=== PATIENT | female | born 1965 | race Caucasian/White ===

== ENCOUNTER → 2016-11-12 | Outpatient (CLI) | payer OTHER | LOC: BMCIMAGING 10:04 | PROVIDERS: ATTEND Internal Medicine | DX: R06.02 Shortness of breath (principal); Z85.850 Personal history of malignant neoplasm of thyroid ==

== ENCOUNTER 2017-01-23 10:55 | Day surgery (SDC) | payer OTHER ==
[2017-01-23] MEDS ORDERED: ASPIRIN EC 325 MG TAB PO ONE ×2 (10:57→11:20)
[2017-01-23] MEDS ORDERED: FAMOTIDINE 20 MG TAB PO ONE (10:57)
[2017-01-23] MEDS ORDERED: DIAZEPAM 5 MG TAB PO ONE (10:57)
[2017-01-23] MEDS ORDERED: diphenhydrAMINE 25 MG CAP PO ONE ×2 (10:57→11:20)
[2017-01-23] MEDS ORDERED: NS 1,000 ML IV ONE (10:57)
--- NOTE | 2017-01-23 11:18 | CPEKG ---
Heart Rate: 60 RR Interval: 1000 P-R Interval: 136 QRSD Interval: 94 QT Interval: 448 QTC Interval: 448 P [place]: 18 QRS [place]: 29 T Wave [place]: 48 EKG Severity - BORDERLINE ECG - EKG Impression: SINUS RHYTHM EKG Impression: non-specific ST depression anterior-lateral leads. Electronically Signed By: Travon Wellington 23-Jan-2017 12:13:28
[2017-01-23] MEDS ORDERED: FAMOTIDINE 20 MG TAB ONE (11:20)
[2017-01-23] MEDS ORDERED: DIAZEPAM 5 MG TAB ONE (11:21)
[2017-01-23 11:33] LABS: % IMMATURE GRANULYOCYTES 0.3 % (0.0-1.1); ABSOLUTE IMMATURE GRANULOCYTES 0.02 10^3/uL (0.00-0.10); ADD DIFF? NO; ADD MORPH? NO; ADD SCAN? NO; ATYPICAL LYMPHOCYTE FLAG 20 (0-99); FRAGMENT RBC FLAG 0 (0-99); HEMATOCRIT 41.6 % (38.0-47.0); HEMOGLOBIN 14.1 g/dL (12.6-16.3); LEFT SHIFT FLG 0 (0-99); LIPEMIA HEMOLYSIS FLAG 90 (0-99); MEAN CELL HEMOGLOBIN 30.6 pg (27.9-34.1); MEAN CELL HEMOGLOBIN CONCENTR. 33.9 g/dL (32.4-36.7); MEAN CELL VOLUME 90.2 fL (81.5-99.8); MEAN PLATELET VOLUME 9.6 fL (8.7-11.7); PLATELET CLUMPS FLAG 0 (0-99); PLATELET COUNT 320 10^3/uL (150-400); RED BLOOD CELL COUNT 4.61 10^6/uL (4.18-5.33); RED CELL DISTRIBUTION WIDTH 13.1 % (11.5-15.2)
[2017-01-23 11:46] LABS: ANION GAP 10 mEq/L (8-16); CALCIUM 9.5 mg/dL (8.5-10.4); CARBON DIOXIDE 26 mEq/l (22-31); CHLORIDE 107 mEq/L (97-110); CHOLESTEROL 168 mg/dL (140-200); CHOLESTEROL/HDL RATIO 3.82 RATIO (1.00-4.44); CREATININE 0.9 mg/dL (0.6-1.0); GLOMERULAR FILTRATION RATE > 60; GLUCOSE 83 mg/dL (70-100); HIGH DENSITY LIPOPROTEIN 44 mg/dL (40-95); LDL/HDL RATIO 2.23 RATIO (1.00-3.22); LOW DENSITY LIPOPROTEIN 98 mg/dL (70-100); MAGNESIUM 2.1 mg/dL (1.6-2.3); NON-HIGH DENSITY LIPOPROTEIN 124 mg/dL (90-129); POTASSIUM 4.1 mEq/L (3.5-5.2); SODIUM 143 mEq/L (134-144); TRIGLYCERIDE 131 mg/dL (35-135); VERY LOW DENSITY LIPOPROTEINS 26 mg/dL (8-25)
[2017-01-23 11:48] LABS: INR 1.01 (0.83-1.16); PROTIME(PATIENT) 13.2 SEC (12.0-15.0)
[2017-01-23] MEDS ORDERED: MIDAZOLAM 2 MG/2 ML VIAL ONE ×2 (12:19→13:10)
[2017-01-23] MEDS ORDERED: HEPARIN 10,000 UNIT/10 ML MDV ONE (12:19)
[2017-01-23] MEDS ORDERED: IOPAMIDOL (ISOVUE-370) 150 ML BTL IV ONE (12:19)
[2017-01-23] MEDS ORDERED: LIDOCAINE 1% 30 ML SDV ONE (12:19)
[2017-01-23] MEDS ORDERED: fentaNYL 100 MCG/2 ML INJ ONE ×2 (12:19→13:11)
[2017-01-23] MEDS ORDERED: VERAPAMIL 5 MG/2 ML VIAL ONE (12:19)
[2017-01-23] MEDS ORDERED: NITROGLYCERIN 0.4 MG BTL SL PRN (14:20)
[2017-01-23] MEDS ORDERED: OXYCODONE/APAP 5/325 TAB PO PRN (14:20)
[2017-01-23] MEDS ORDERED: HYDROCODONE/APAP 5/325 TAB PO PRN (14:20)
[2017-01-23] MEDS ORDERED: ONDANSETRON 4 MG/2 ML VIAL IVP PRN (14:20)
[2017-01-23] MEDS ORDERED: ATROPINE SULFATE 1 MG/10 ML SYR IVP PRN (14:20)
--- NOTE | 2017-01-23 14:20 | PDDXCAT ---
Diagnostic Cath Note - . Date: 01/23/17 [employer] Husband[employer] Professor: Ludwin Indication: Class I/II angina, intolerance to med therapy or failure to respond High-risk criteria on non-invasive testing: stress-induced moderate-size multiple perfusion defects - Procedure Access: right wrist Procedure: left heart catheterization, coronary angiography, right heart catheterization - Materials Left Heart Cath materials: pigtail, other (SiteSeer) Right Heart Cath size: 5F Right Heart Cath materials: PWP catheter - Findings-Left Heart Catheterization LM: normal LAD: normal LCX: normal RCA: dominant: normal EDP: 13 mm of mercury LVEF: 65% Wall motion: normal - Findings-Right Heart Catheterization RA: 7 mm of mercury RV: 34/2 mm of mercury PA: 31/13 mm of mercury PAOP: 13 mm of mercury Complications: none Estimated blood loss: <50ml Closure method: TR Band Assessment: 1. Angiographically normal coronary arteries. 2. Normal left ventricular systolic function with normal filling pressures. 3. normal right heart pressures. 4. exertional shortness of breath of uncertain etiology. Plan: Follow-up Dr. Carlos Sargent. Considerations for VO2 max treadmill to assess component of pulmonary versus deconditioning as etiology for shortness of breath with exertion. Continue primary prevention.
--- NOTE | 2017-01-23 16:56 | GHP ---
[f rep st] HISTORY AND PHYSICAL DATE OF ADMISSION: 01/23/2017 CHIEF COMPLAINT: Shortness of breath with exertion. HISTORY OF PRESENTING ILLNESS: The patient is a krupa lady with no prior cardiovascular history wh o, over the last several months, has had progressive dyspnea on exertion, such that she is unable to walk on a flat surface for a block, nor is she able to go up a flight of stairs. She was seen by Monica Sargent who performed a stress test, which suggested the possibility of anterior ischemia, and she is referred today for a right and left heart catheterization for further evaluation. On arriva l today, she is free of chest pain, resting shortness of breath, PND, orthopnea, felt palpitations, syncope, near-syncope. FAMILY HISTORY: Positive for early heart disease. MEDICATIONS: Please see attached medication reconciliation sheet. SOCIAL HISTORY: She is a nonsmoker. REVIEW OF SYSTEMS: Today, is negative for fever or chills, nausea or vomiting, abdominal pain, diar juan, constipation, dysuria, bruising, bleeding, hematemesis, melena or hemoptysis. PHYSICAL EXAMINATION: VITAL SIGNS: Blood pressure of 130/70, current heart rate is 62. GENERAL: Well-nourished, well-developed female, resting comfortably flat in bed. HEENT: Significant for no xanthelasma. She had no JVP. CHEST: Clear to auscultation and percussion. CARDIAC: Regular rate and rhythm without murmurs, rubs or gallops. ABDOMEN: Soft, nontender with good bowel sounds. EX TREMITIES: edema. There is no clubbing or cyanosis. PERIPHERAL VASCULAR: Femoral puls es were +2, radial pulses were +2 with an intact Jesus test. Carotids are +2 and equal. EKG reveals sinus rhythm without acute ST-T changes. Laboratory data is reviewed and essentially within normal limits. IMPRESSION: dyspnea on exertion, progressive in nature, query anginal equivalent. This is associat ed with an abnormal nuclear stress test, suggesting the possibility of anterior ischemia. PLAN: Right and left heart catheterization for definitive diagnosis today. The risks and benefits of this approach including radial artery approach, were discussed at length. We will proceed. Ques tions were answered for both the patient and her . /[id number]/MODL
== END 2017-01-23 16:50 | disposition home or self-care (01) ==
LOC: FCATH 10:55
PROVIDERS: ATTEND Internal Medicine Interventional Cardiology
DX: R06.09 Other forms of dyspnea (principal); E03.9 Hypothyroidism, unspecified
CPT/HCPCS: 93005; 93460; C1769; J1644; J2250; J2405; J3010; Q9967